=== PATIENT | female | born 1950 | race Caucasian/White ===

== ENCOUNTER 2018-03-05 09:52 | Emergency (ER) | payer MEDICARE ==
[~2018-03-05] VITALS: Ht 172.7 cm; Wt 63.9 kg
--- NOTE | 2018-03-05 11:07 | NUR ---
PT TO ED ROOM 4 FROM LOBBY AT THIS TIME IN NAD
[2018-03-05] MEDS ORDERED: HYDROmorphone 1 MG/ML, 1ML ONE (11:48)
[2018-03-05] MEDS ORDERED: ONDANSETRON 2MG/ML, 2ML ONE (11:48)
[2018-03-05 11:57] LABS: BASOPHILS # (AUTO) 0.02 x10^3/uL (0-0.1); BASOPHILS % (AUTO) 0 % (0-1); EOSINOPHILS # (AUTO) 0.08 x10^3/uL (0-0.4); EOSINOPHILS % (AUTO) 1 % (1-7); LYMPHOCYTES # (AUTO) 1.22 x10^3/uL (1-3.4); LYMPHOCYTES % (AUTO) 19 % (22-44); MD NO; MEAN CORPUSCULAR HEMOGLOBIN 28.9 pg (27.0-34.8); MEAN CORPUSCULAR HGB CONC 33.5 g/dL (32.4-35.8); MEAN CORPUSCULAR VOLUME 86.3 fL (80-100); MEAN PLATELET VOLUME 9.3 fL (7.4-10.4); MONOCYTES # (AUTO) 0.81 x10^3/uL (0.2-0.8); MONOCYTES % (AUTO) 13 % (2-9); NEUTROPHILS # (AUTO) 4.22 x10^3/uL (1.8-6.8); NEUTROPHILS % (AUTO) 67 % (42-75); PLATELET COUNT 159 x10^3/uL (130-400); RED BLOOD COUNT 4.87 x10^6/uL (3.82-5.3); RED CELL DISTRIBUTION WIDTH 12.8 % (9.6-15.2)
[2018-03-05] MEDS: HYDROmorphone 2 MG/ML, 1ML IVPush PRN ×2 (11:59→12:27)
[2018-03-05] MEDS ORDERED: ONDANSETRON 2MG/ML, 2ML IVPush ONE (12:00)
[2018-03-05] MEDS ORDERED: SODIUM CHLORIDE FLUSH 10ML SYR IVF ONE (12:00)
[2018-03-05 12:04] VITALS: BP 174/98
[2018-03-05 12:06] LABS: ALANINE AMINOTRANSFERASE 35 U/L (12-78); ALBUMIN 3.9 g/dL (3.4-5.0); ANION GAP 7 mmol/L (5-15); CALCIUM 9.4 mg/dL (8.5-10.1); CHLORIDE 103 mmol/L (98-107)
[2018-03-05 12:08] LABS: ALKALINE PHOSPHATASE 97 U/L (45-117); BILIRUBIN,TOTAL 0.7 mg/dL (0.2-1.0); TOTAL PROTEIN 7.4 g/dL (6.4-8.2)
[2018-03-05] MEDS ORDERED: HYDROmorphone 2 MG/ML, 1ML ONE (12:20)
--- NOTE | 2018-03-05 12:59 | NUR ---
PT IN CT AT THIS TIME
--- NOTE | 2018-03-05 13:25 | NUR ---
PT RETURNED FROM CT W/O COMPLICATION, IN BED, NAD, NO NEEDS AT THIS TIME, AWAITING UA & CT READS FOR DISPO. [facility]
[2018-03-05] MEDS ORDERED: POTASSIUM CHLORIDE 20 MEQ TAB.ER.PRT PO ONE (13:30)
[2018-03-05 13:42] LABS: MICROSCOPIC AUTO
[2018-03-05 13:45] LABS: CULTURE INDICATED? YES
[2018-03-05] MEDS ORDERED: POTASSIUM CHLORIDE 20 MEQ TAB.ER.PRT ONE (14:55)
[2018-03-05 15:11] LABS: TROPONIN I < 0.015 ng/mL (0.000-0.045)
== END 2018-03-05 16:02 | disposition home or self-care (01) ==
LOC: ED 14:02
DX: R10.13 Epigastric pain (principal); Z90.49 Acquired absence of other specified parts of digestive tract; Z90.710 Acquired absence of both cervix and uterus
CPT/HCPCS: 36415; 74176; 80053; 81001; 83690; 84484; 85025; 87086; 93005; 96374; 96375; 99284; J1170; J2405